=== PATIENT | male | born 1950 | race Caucasian/White ===

== ENCOUNTER → 2024-09-11 | Outpatient (CLI) | payer MEDICARE, OTHER ==
[2024-09-11 16:02] LABS: BASO % 0.5 % (0.0-1.0); EOS # 0.1 10*3/uL (0.0-0.4); HEMATOCRIT 38.5 % (42.0-52.0); MEAN CELL VOLUME 83.3 fl (80.0-94.0); MEAN CORPUSCULAR HGB 26.6 pg (27.0-31.0); MEAN CORPUSCULAR HGB CONC 31.9 g/dl (33.0-37.0); MEAN PLATELET VOLUME 10.9 fl (9.6-12.3); MONO # 0.5 10*3/uL (0.1-1.0); MONO % 9.7 % (3.0-9.0); NEUT # 3.7 10*3/uL (2.3-7.9); NEUT % 66.5 % (47.0-73.0); PLATELET COUNT AUTOMATED 158 10*3/uL (130-400); RED BLOOD COUNT 4.62 10*6/uL (4.50-5.90); WHITE BLOOD COUNT 5.6 10*3/uL (4.8-10.8)
[2024-09-11 16:29] LABS: ALKALINE PHOSPHATASE 66 U/L (46-116); BUN 18 mg/dl (9-23); CHLORIDE 105 mmol/L (98-107); POTASSIUM 4.1 mmol/L (3.4-5.1); SGPT/ALT 26 U/L (5-49)
== END | disposition home or self-care (01) ==
LOC: LAB 15:43
PROVIDERS: ATTEND Nurse Practitioner Family
DX: I48.11 Longstanding persistent atrial fibrillation (principal); M05.9 Rheumatoid arthritis with rheumatoid factor, unspecified; Z79.01 Long term (current) use of anticoagulants